=== PATIENT | male | born 1985 | race Caucasian/White ===

== ENCOUNTER 2019-08-16 22:30 | Emergency (ER) | payer SELFPAY ==
[~2019-08-16] VITALS: Ht 193 cm; Wt 122.1 kg
[2019-08-16 22:32] VITALS: BP 130/74
[2019-08-16] MEDS ORDERED: KETOROLAC 30 MG/1 ML IM ONE (23:00)
[2019-08-16] MEDS ORDERED: DIAZEPAM 5 MG TABLET PO ONE (23:00)
[2019-08-16] MEDS ORDERED: KETOROLAC 30 MG/1 ML ONE (23:24)
[2019-08-16] MEDS ORDERED: DIAZEPAM 5 MG TABLET ONE (23:24)
[2019-08-17] MEDS ORDERED: METHOCARBAMOL 750 MG TABLET PO ONE
[2019-08-17] MEDS ORDERED: HYDROcodone/APAP 5/325 TABLET PO ONE
== END 2019-08-17 00:54 | disposition home or self-care (01) ==
LOC: ED 08-17 00:10
DX: S29.012A Strain of muscle and tendon of back wall of thorax, initial encounter (principal); F17.200 Nicotine dependence, unspecified, uncomplicated; X58.XXXA Exposure to other specified factors, initial encounter; Y93.89 Activity, other specified; Y92.89 Other specified places as the place of occurrence of the external cause; Y99.8 Other external cause status
CPT/HCPCS: 71046; 96372; 99283; J1885